=== PATIENT | female | born 1955 | race Caucasian/White ===

== ENCOUNTER 2023-01-08 19:49 | Emergency (ER) | payer MEDICARE, MEDICAID, SELFPAY ==
[2023-01-08 19:49] VITALS: BP 123/64; PULSE 89; RESP 18; TEMP 36.7; O2SAT 99
--- NOTE | 2023-01-08 20:12 | EX.ED.DYSGE1 ---
HPI History of Present Illness Chief Complaint: Shortness of Breath Detail of Chief Complaint: Short of breath, cough, sore throat, ear pain Informant: patient Onset/Context/Timing Onset: Yesterday Narrative Narrative: Patient presents complaining of cough with some production of blood-tinged sputum and sore throat. She complains of pain to her bilateral ears. She just traveled back from [place] via plane. Patient states she took a COVID test before she left [place] and it was negative. Patient does have a history of A-fib and is on Eliquis. [facility] Medical History (Updated 01/08/23 @ 21:[address] Myriam Mcmillan MD) Addisons disease Asthma Atrial fibrillation Home Medications guaifenesin 1,200 mg tablet, extended release 12 hr (Mucinex) 1,200 mg PO BID PRN cough #14 tabs 01/08/23 [Rx Last Taken Unknown] hydrocodone-homatropine 5 mg-1.5 mg/5 mL (5 mL) oral syrup (Hycodan) 5 ml PO Q6H PRN cough 3 days #60 mL 01/08/23 [Rx Last Taken Unknown] nirmatrelvir 300 mg (150 mg x2)-ritonavir 100 mg tablet,dose pack (Paxlovid) See Rx Instructions PO .COMPLEX #30 tabs 01/08/23 [Rx Last Taken Unknown] Allergy/AdvReac Type Severity Reaction Status Date / Time Penicillins Allergy Severe Anaphylaxis Verified 01/08/23 19:53 vancomycin Allergy Rash Verified 01/08/23 19:53 ASPRIN Allergy Severe Anaphylaxis Uncoded 01/08/23 19:53 Social History Smoking Status: Never smoker ROS ROS ED Constitutional Constitutional ED: Reports chills, fever(s) and subjective Eyes Eyes: Denies change in vision ENT ENT ED: Reports ear pain bilateral and sore throat; Denies rhinorrhea Cardiovascular Cardiovascular: Denies chest pain or palpitations Respiratory/Chest Respiratory/Chest: Reports cough and dyspnea Gastrointestinal Gastrointestinal: Denies abdominal pain, nausea or vomiting Musculoskeletal Musculoskeletal: Denies back pain or extremity pain Integumentary Denies Abrasions or rash Neurologic Neurologic: Denies headache(s) or weakness Psychiatric Psychiatric: Denies anxiety or depression Allergic/Immunologic Allergic/Immunologic ED: Denies lip swelling or urticaria EXAM Physical Exam Const Vital Signs: 01/08/23 19:49 01/08/23 20:41 Temperature 98.0 F Temperature Source Temporal Pulse Rate 89 Respiratory Rate 18 Respiratory Effort Normal Non-Labored Respiratory Depth Normal Respiratory Pattern Normal Blood Pressure 123/64 H Blood Pressure Mean 83 Pulse Ox 99 Oxygen Delivery Method Room Air Positive well nourished and well developed General Appearance ED: well developed HEENT Reports normocephalic and head/scalp atraumatic HEENT Narrative: TMs clear bilaterally. Posterior pharynx examination with mild drainage. Uvula midline. Eyes PERRL and EOMs intact bilaterally Neck supple Chest Wall inspection of chest normal and palpation of chest normal Resp normal respiratory effort and clear to auscultation bilaterally Cardio regular rate and regular rhythm GI normal to inspection, nondistended, normoactive bowel sounds Palpation: soft Extremity normal to inspection Neuro oriented x3 and no sensory deficits noted Sensorium / Orientation: alert Motor Exam: strength 5/5 throughout Psych mental status grossly normal Skin no rashes or lesions noted MDM MDM MDM Narrative Medical decision making narrative: Chest x-ray obtained to evaluate for acute lung pathology, cardiac size, or mediastinal abnormality. Swab for COVID and influenza obtained along with swab for strep pharyngitis. Patient given Robitussin-AC for cough control and sore throat Radiography Diagnostic Testing: Clinical Impression(s) from Imaging Studies Chest X-Ray 01/08/23 20:20 IMPRESSION: No acute cardiopulmonary disease. Electronically Signed: Jennifer Pastor MD at 20:34 EDT Reading Location ID and State: [address] [place] [address] , Service support , Treatment and Re-Evaluation :: Portable chest x-ray per my interpretation reveals no evidence of focal infiltrate. Radiology interpretation is reviewed and agrees. Swab for rapid strep is negative. Swab for influenza is negative. Swab for COVID does return positive. On repeat evaluation patient is continuing to have cough. She will be given Mucinex. She is being given an incentive spirometer. We discussed monitoring her oxygen levels at home. She will be given prescriptions for Paxlovid, Mucinex, and Hycodan. Return instructions given. Discharge Plan Triage Chief Complaint: Shortness of Breath ED Provider: Myriam Mcmillan Dx/Rx/DC Orders Clinical Impression: COVID-19 Instructions: Coronavirus Disease 2019 (COVID-19): Overview, Coronavirus Disease 2019 (COVID-19): Caring for Yourself or Others Prescriptions: New guaifenesin [Mucinex] 1,200 mg tablet extended release 12hr 1,200 mg PO BID PRN (Reason: cough) Qty: 14 0RF hydrocodone-homatropine [Hycodan] 5-1.5 mg/5 mL (5 mL) syrup 5 ml PO Q6H PRN (Reason: cough) 3 Days Qty: 60 0RF Paxlovid 300 mg (150 mg x 2)-100 mg tablets,dose pack See Rx Instructions .ROUTE .COMPLEX Qty: 30 0RF Rx Instructions: take TWO 150 mg tablets of nirmatrelvir with ONE 100 mg tablet of ritonavir twice daily for 5 days Primary Care Provider: [facility] Doctor,Out of Referrals: NOT,DEFINED [Non-Staff] - Disposition Disposition: Home, Self Care
--- NOTE | 2023-01-08 20:20 | RAD_ITS ---
STUDY: X-RAY CHEST REASON FOR EXAM: Female, 67 years old. cough TECHNIQUE: Single AP portable view of the chest. COMPARISON: None. FINDINGS: The lungs are clear and underexpanded. There is no demonstrated pleural abnormality. Normal size heart. Normal mediastinum and lizzie. Normal visualized pulmonary arteries. There is atherosclerotic calcification of the aortic arch with tortuosity. There are diffuse degenerative changes of the visualized thoracic spine. There is degenerative osteoarthritis of the bilateral shoulders. There is no demonstrated abnormality of the visualized soft tissue structures of the upper abdomen. RAD/Chest 1 View (Portable) IMPRESSION: No acute cardiopulmonary disease. Electronically Signed: Jennfier Pastor MD at 20:34 EDT ,
[2023-01-08] MEDS: guaiFENesin/Codeine 5 ML UDC PO (20:32)
[2023-01-08] MEDS: guaiFENesin 1,200 MG Tablet 1200 MG PO (22:00)
[2023-01-08 22:05] VITALS: BP 105/70; PULSE 73; RESP 18; O2SAT 97
== END 2023-01-08 22:06 | disposition home or self-care (01) ==
PROVIDERS: Emergency Provider Emergency Medicine; Visit Provider Emergency Medicine
DX: U07.1 COVID-19 (principal); I48.91 Unspecified atrial fibrillation; Z79.01 Long term (current) use of anticoagulants
CPT/HCPCS: 71045; 87428; 87880; 99283

== ENCOUNTER 2024-12-24 17:30 | Emergency (ER) | payer MEDICARE, MEDICAID, SELFPAY ==
[2024-12-24 17:31] VITALS: BP 122/79; PULSE 72; RESP 18; TEMP 37.2; O2SAT 98; BMI 38.7
[2024-12-24 18:34] LABS: Mucous, Urine 0 SEEN /hpf (<or=2+)
[2024-12-24 19:31] VITALS: BP 126/111; PULSE 72
[2024-12-24 19:47] LABS: Glucose, Dipstick Normal (Normal); Ketone-Dipstick Negative (Negative); Leukocyte Esterase-Dipstick 100 /ul (Negative); Nitrite-Dipstick Negative (Negative); Occult Blood-Urine 10 /ul (Negative); Protein-Dipstick 30 mg/dl (Negative); Specific Gravity, Urine 1.020 (1.002-1.030)
[2024-12-24 19:54] LABS: Urine Bilirubin Dipstick 1 mg/dL (Negative)
[2024-12-24 19:55] LABS: Color, Urine Yellow (Yellow)
[2024-12-24 21:00] VITALS: BP 123/71; PULSE 77; RESP 16; O2SAT 98
[2024-12-24 21:12] LABS: Red Blood Cells-Urine 0-5 SEEN /hpf (0-5); Squamous Epithelial Cells - UA 0-5 SEEN /hpf (5-10)
--- NOTE | 2024-12-24 21:49 | EDS_ITS ---
HPI HPI - Female History of Present Illness Chief Complaint: Complaint Informant: patient Narrative Narrative: 61-year-old female who lives in [place]. Has a history of Brian's disease, diabetes, CAD with stents on the blood thinners Eliquis and Plavix. States she had UTI earlier in the month. Was treated with Bactrim sometimes returned she is on a second course of Bactrim. The first course was for 5 days she been on this for 3 days. Said she is not improving. Her primary care physician want to have her evaluated locally since she normally lives in [place]. She denies any fevers. No abdominal pain. No vomiting or diarrhea. Prior similar symptoms: Yes Recent Illness/Hospitalization: No PFSH PFSH Medical History Addisons disease Asthma Atrial fibrillation Home Medications ?Medication ?Instructions ?Recorded ?Last Taken ?Type guaifenesin 1,200 mg tablet, 1,200 mg PO BID PRN cough #14 tabs 01/08/23 Unknown Rx extended release 12 hr (Mucinex) hydrocodone-homatropine 5 mg-1.5 5 ml PO Q6H PRN cough 3 days #60 mL 01/08/23 Unknown Rx mg/5 mL (5 mL) oral solution (Hycodan) nirmatrelvir 300 mg (150 mg See Rx Instructions PO .CO MPLEX 01/08/23 Unknown Rx x2)-ritonavir 100 mg tablet,dose #30 tabs pack (Paxlovid) cephalexin 500 mg capsule 500 mg PO Q6 7 days #28 CAPS ULES 12/24/24 Unknown Rx Allergy/AdvReac Type Severity Reaction Status Date / Time Penicillins Allergy Severe Anaphylaxis Verified 12/24/24 17:35 vancomycin Allergy Rash Verified 12/24/24 17:35 ciprofloxacin (From Cipro) AdvReac Severe Other Verified 12/24/24 17:35 ASPRIN Allergy Severe Anaphylaxis Uncoded 01/08/23 19:53 Family History no significant family his Social History Smoking Status: Never smoker ROS ROS ED ROS Narrative Dysuria. Constitutional Constitutional ED: Denies chills or fever(s) Eyes Eyes: Denies blurry vision ENT ENT ED: Denies ear pain Cardiovascular Cardiovascular: Denies chest pain Respiratory/Chest Respiratory/Chest: Denies cough, dyspnea or dyspnea on exertion Gastrointestinal Gastrointestinal: Denies abdominal pain, constipation, diarrhea, melena, nausea or vomiting Genitourinary Genitourinary ED: Reports dysuria; Denies hematuria Musculoskeletal Musculoskeletal: Denies arthralgias or myalgias Integumentary Denies abscess Neurologic Neurologic: Denies headache(s) Psychiatric Psychiatric: Denies anxiety or depression Endocrine Endocrinology: Denies heat intolerance or polydipsia Hematologic/Lymphatic Hematologic/Lymphatic: Denies easy bleeding or easy bruising Allergic/Immunologic Allergic/Immunologic ED: Denies mouth swelling, tongue swelling or urticaria EXAM Physical Exam Narrative Exam Narrative: 61-year-old female sitting upright in bed vital signs are stable afebrile. Current blood pressure 04/23/1978. She does not look septic toxic she is in no distress. H EENT exam pupils round react to light. Moist mutes membranes. Neck nontender no lymphadenopathy. Lungs clear to auscultation. Heart regular rhythm no murmur. Chest wall ribs nontender. Abdomen soft nontender. Moving all 4 extremities. Calves are nontender edema or cords. Neurologically patient is awake alert. Answering questions following commands. Normal drug safety data management specialist strength. Normal dorsi plantarflexion. Back nontender. No CVA tenderness. Benign exam. Clinically looks well. Const Vital Signs: 12/24/24 17:31 12/24/24 19:31 12/24/24 21:00 Temperature 98.9 F Temperature Source Temporal Pulse Rate 72 72 77 Respiratory Rate 18 16 Blood Pressure 122/79 H 126/111 H 123/71 H Blood Pressure Mean 93 116 88 Pulse Ox 98 98 Oxygen Delivery Method Room Air Room Air Positive well nourished and well developed; Negative for cachectic, contractures or unkempt General Appearance ED: well developed and NAD; Negative for unkempt, cachectic, contractures or pallor Nutritional Appearance: Negative for cachectic HEENT Reports moist mucous membranes Eyes PERRL and EOMs intact bilaterally Neck no lymphadenopathy, supple and no JVD Chest Wall inspection of chest normal and palpation of chest normal Resp normal respiratory effort and clear to auscultation bilaterally Cardio regular rate, regular rhythm, S1 normal heart sound, no murmurs and no JVD GI normal to inspection, nondistended, normoactive bowel sounds, soft to palpation, non-tender, non-distended and no masses Auscultation: normoactive bowel sounds Back/Spine no CVA tenderness General Back: Negative for CVA tenderness Cervical Spine: Negative for cervical spine tenderness Thoracic Spine / Upper Back: Negative for thoracic spinal tenderness Lumbar Spine / Lower Back: Negative for lumbar spinal tenderness Extremity normal to inspection and full ROM General Extremety ED: Negative for edema, tenderness or other findings General Extremity: Negative for edema or other findings Neuro oriented x3 and CN's II-XII intact bilaterally Sensorium / Orientation: alert, oriented to person, oriented to place and oriented to time Motor Exam: strength 5/5 throughout Psych mental status grossly normal Appearance: Negative for unkempt Attitude: No agitated Mood & Affect: Negative for depressed, anxious or tearful Skin no rashes or lesions noted and no wounds General Skin Exam: Negative for jaundice or pallor Rashes: No rashes noted Trauma: Negative for other MDM MDM MDM Narrative Medical decision making narrative: 69-year-old female history UTIs. Has been on Bactrim. UA was obtained shows 10-25 white cells and only rare bacteria. She wants her antibiotic changed. I was just going to send the culture. Patient will be given IM injection of Rocephin and be started on Keflex 504 times a day for a week. Urine culture be sent. Offered to do screening labs such as CBC and chemistry and she deferred. She did not want any further testing done at this time. History & Record Review Discussion w/independent historian: Patient Additional record(s) reviewed:: No prior records Lab Data Attestation: I reviewed the patient's lab results. Lab results narrative: UA shows 10-25 white cells. Rare bacteria. Urine culture be sent. Labs: Laboratory Results - last 24 hr 12/24/24 18:29 Urine Color Yellow Urine Clarity Clear Urine pH 6.0 Ur Specific [place] 1.020 Urine Protein 30 H Urine Glucose (UA) Normal Urine Ketones Negative Urine Occult Blood 10 H Urine Nitrite Negative Urine Bilirubin 1 H Urine Urobilinogen Normal Ur Leukocyte Esterase 100 H Urine RBC 0-5 SEEN Urine WBC 10-25 SEEN Ur Squamous Epith Cells 0-5 SEEN Urine Bacteria RARE Urine Mucus 0 SEEN Discharge Plan Triage Chief Complaint: Complaint ED Provider: Chase Hogan Dx/Rx/DC Orders Clinical Impression: Acute UTI, History of Brian's disease, History of diabetes mellitus Instructions: ED Cystitis Female Adult Prescriptions: New cephalexin 500 mg capsule 500 mg PO Q6 7 Days Qty: 28 0RF No Action guaifenesin [Mucinex] 1,200 mg tablet extended release 12hr 1,200 mg PO BID PRN (Reason: cough) Qty: 14 0RF hydrocodone-homatropine [Hycodan] 5-1.5 mg/5 mL (5 mL) syrup 5 ml PO Q6H PRN (Reason: cough) 3 Days Qty: 60 0RF Paxlovid 300 mg (150 mg x 2)-100 mg tablets,dose pack See Rx Instructions .ROUTE .COMPLEX Qty: 30 0RF Rx Instructions: take TWO 150 mg tablets of nirmatrelvir with ONE 100 mg tablet of ritonavir twice daily for 5 days Primary Care Provider: [facility] Amezquita,Out of Referrals: Kelvin Jones MD [Med Staff - External Relations Director, Family Practice] - 3-5 Days if not improving [facility] Doctor,Out of [Primary Care Provider, Medical] Activity Restrictions/Additional Instructions: Plenty of fluids and rest. Stop your current antibiotic the Bactrim. Start the Keflex 1 pill 4 times a day. We did send a urine culture if it is not sensitive to the Keflex we will get hold you. Return if feeling worse. Follow-up with your doctor when you are back in [place]. Print Language: Amharic Disposition Disposition: Home, Self Care
--- OUTSIDE RECORDS SUMMARY | 2024-12-24 21:49 | XMS RPT_ITS | CCD ---
Author Organization [facility] ion Partnership [facility] Care Team Providers Care Certified Forklift Operator Name Role Phone Danielle Cunningham Unavailable Unavailable Danielle Cunningham Unavailable Unavailable Unavailable Primary Care Provider Unavailabl e Unavailable Primary Care Provider Unavailabl e Allergies Allergy Classification Reported Allergen(s) Allergy Type Date of Onset Reaction(s) Facility (3 sources) Amoxicillin; Translations: [AMOXICILLIN] Drug Allergy 11-13-19 13 Rash, Hives, Shortness of Breath [facility] Work Phone: [phone] (3 sources) Aspirin; Translations: [ASPIRIN] Drug Allergy 11-13-19 13 Anaphylaxis [facility] Work Phone: (3 sources) Azithromycin; Translations: [AZITHROMYCIN] Drug Allergy 11-13-19 13 Rash [facility] Work Phone: (3 sources) carBAMazepine; Translations: [CARBAMAZEPINE] Drug Allergy 11-13-19 13 Hives [facility] Work Phone: [phone] (3 sources) Cefaclor; Translations: [CEFACLOR] Drug Allergy 11-13-19 13 Rash [facility] Work Phone: (3 sources) cefprozil; Translations: [CEFPROZIL] Drug Allergy 11-13-19 13 Rash [facility] Work Phone: (3 sources) cefTRIAXone; Translations: [CEFTRIAXONE SODIUM] Drug Allergy 11-13-19 13 Hives [facility] Work Phone: (3 sources) Cefuroxime; Translations: [CEFUROXIME AXETIL] Drug Allergy 11-13-19 13 Other: See Comments [facility] Work Phone: (3 sources) chlorproMAZINE; Translations: [CHLORPROMAZINE] Drug Allergy 11-13-19 13 Other: See Comments [facility] Work Phone: (3 sources) Cilastatin / Imipenem; Translations: [IMIPENEM-CILASTATI N] Drug Allergy 11-13-19 13 Unknown [facility] Work Phone: (3 sources) Cimetidine; Translations: [CIMETIDINE] Drug Allergy 11-13-19 13 Other: See Comments [facility] Work Phone: (3 sources) Ciprofloxacin; Translations: [CIPROFLOXACIN] Drug Allergy 11-13-19 13 Anaphylaxis [facility] Work Phone: (3 sources) Doxycycline; Translations: [DOXYCYCLINE] Drug Allergy 11-13-19 13 Unknown [facility] Work Phone: (3 sources) FLUoxetine; Translations: [FLUOXETINE] Drug Allergy 11-13-19 13 Other: See Comments [facility] Work Phone: (3 sources) Hyoscyamine; Translations: [HYOSCYAMINE] Drug Allergy 11-13-19 13 Other: See Comments [facility] Work Phone: (3 sources) levoFLOXacin; Translations: [LEVOFLOXACIN] Drug Allergy 11-13-19 13 [facility] Work Phone: (3 sources) Metoclopramide; Translations: [METOCLOPRAMIDE] Drug Allergy 11-13-19 13 Other: See Comments [facility] Work Phone: (3 sources) moxifloxacin; Translations: [MOXIFLOXACIN HCL] Drug Allergy 11-13-19 13 [facility] Work Phone: (3 sources) Nadolol; Translations: [NADOLOL] Drug Allergy 11-13-19 13 Other: See Comments [facility] Work Phone: (3 sources) Ofloxacin; Translations: [OFLOXACIN] Drug Allergy 11-13-19 13 Rash [facility] Work Phone: (3 sources) oxybutynin; Translations: [OXYBUTYNIN] Drug Allergy 11-13-19 13 Other: See Comments [facility] Work Phone: [phone] (3 sources) Penicillins; Translations: [PENICILLINS] Drug Intolerance 11-13-19 13 Anaphylaxis [facility] Work Phone: [phone] (3 sources) prednisoLONE; Translations: [PREDNISOLONE] Drug Allergy 11-13-19 13 Other: See Comments [facility] Work Phone: [phone] (3 sources) pregabalin; Translations: [PREGABALIN] Drug Allergy 11-13-19 13 Shortness of Breath [facility] Work Phone: [phone] (3 sources) Prochlorperazine; Translations: [PROCHLORPERAZINE EDISYLATE] Drug Allergy 11-13-19 13 Other: See Comments [facility] Work Phone: [phone] (3 sources) Propranolol; Translations: [PROPRANOLOL] Drug Allergy 11-13-19 13 Mental Status Change [facility] Work Phone: [phone] (3 sources) QUEtiapine; Translations: [QUETIAPINE FUMARATE] Drug Allergy 11-13-19 13 Other: See Comments [facility] Work Phone: [phone] (3 sources) rifAMPin; Translations: [RIFAMPIN] Drug Allergy 11-13-19 13 Intolerance [facility] Work Phone: [phone] (3 sources) Sertraline; Translations: [SERTRALINE] Drug Allergy 11-13-19 13 Other: See Comments [facility] Work Phone: [phone] (3 sources) Sulfamethoxazole / Trimethoprim; Translations: [SULFAMETHOXAZOLE-T RIMETHOPRIM] Drug Allergy 11-13-19 13 GI Upset, Shortness of Breath [facility] Work Phone: [phone] (3 sources) SUMAtriptan; Translations: [SUMATRIPTAN] Drug Allergy 11-13-19 13 Other: See Comments [facility] Work Phone: [phone] (3 sources) synthetic conjugated estrogens, A; Translations: [SYNTHETIC CONJ ESTROGENS A] Drug Allergy 11-13-19 13 Other: See Comments [facility] Work Phone: [phone] (3 sources) traZODone; Translations: [TRAZODONE] Drug Allergy 11-13-19 13 Other: See Comments [facility] Work Phone: (3 sources) Vancomycin; Translations: [VANCOMYCIN] Drug Allergy 11-13-19 13 Hives [facility] Work Phone: (1 source) NITROFURANTOIN MONOHYD/M-CRYST; Translations: [NITROFURANTOIN MONOHYD/M-CRYST] Propensity to adverse reactions to drug (disorder) 11-13-19 13 [facility] Repository Medications Current Medications Medication Drug Class(es) Dates Sig (Normalized) Sig (Original) Foam Bandage (MEPILEX) 4 X 4 bndg (2 sources) Start: 07-24-2022 End: 08-23-2022 Foam Bandage (MEPILEX) 4 X 4 bndg Indications: Pressure injury of buttock, stage 1, unspecified laterality Apply to affected area one time a week. 5 Each 0 07/24/2022 08/23/2022 Active Comment on above: Apply to affected ar ea one time a week. nitrofurantoin, macrocrystals 25 mg / nitrofurantoin, monohydrate 75 mg oral capsule (2 sources) Nitrofuran Antibacterial Start: 07-27-2022 End: 08-03-2022 take 1 capsule by mouth twice daily at mealtime nitrofurantoin monohydrate and macrocrystal (MACROBID) 100 mg capsule Take 1 capsule by mouth twice daily with meals for 7 days. 14 capsule 0 07/27/2022 08/03/2022 Active Comment on above: Take 1 capsule by [facility] twice daily with meals for 7 days. Completed/Discontinued Medications Medication Drug Class(es) Dates Sig (Normalized) Sig (Original) acetaminophen 300 mg / butalbital 50 mg / caffeine 40 mg oral capsule (2 sources) Barbiturate, Central Nervous System Stimulant, Methylxanthine Start: 07-07-2020 take 1 capsule by mouth once acetaminophen 300 mg-caffeine 40 mg-butalbital 50 mg (FIORICET) per capsule Take 1 capsule by mouth. 0 07/07/2020 Active Comment on above: Take 1 capsule by [facility]. acetaminophen 300 mg / codeine phosphate 30 mg oral tablet (2 sources) Opioid Agonist acetaminophen-co de ine (TYLENOL-COD #3) 300-30 mg per tablet acetaminophen 300 mg-codeine 30 mg tablet 0 Active Comment on above: acetaminophen 300 mg -codeine 30 mg tablet ALPRAZolam 1 mg oral tablet (2 sources) Benzodiazepine take 1 tablet by mouth every twenty-four hours as needed ALPRAZolam (XANAX) 1 mg tablet Take 1 mg by mouth at bedtime as needed. 0 Active Comment on above: Take 1 mg by mouth a t bedtime as needed. apixaban 5 mg oral tablet (2 sources) Factor Xa Inhibitor apixaban (EL IQUIS) 5 mg tab(s) Take by mouth. 0 Active Comment on above: Take by mouth. ARIPiprazole 5 mg oral tablet (2 sources) Atypical Antipsychotic Start: 06-30-2020 ARIPiprazole (ABILIFY) 5 mg tablet Take 1 tablet by mouth. 0 06/30/2020 Active Comment on above: Take 1 tablet by becca th. betamethasone 0.001 mg/mg topical ointment (2 sources) Corticosteroid Start: 07-20-2020 betamethasone valerate 0.1 % ointment Calcium Carbonate / vitamin D3 (2 sources) CALCIUM CARBONATE/VITAMIN D3 (CALCIUM 600 + D ORAL) Take by mouth. 0 Active Comment on above: Take by mouth. carbidopa 25 mg / levodopa 250 mg oral tablet (2 sources) Aromatic Amino Acid Decarboxylation Inhibitor, Aromatic Amino Acid take 1 tablet by mouth three times daily carbidopa-levodopa 25-250 mg per tablet Take 1 tablet by mouth three times daily. 0 Active Comment on above: Take 1 tablet by becca th three times daily. DULoxetine 30 mg delayed release oral capsule (4 sources) Serotonin and Norepinephrine Reuptake Inhibitor take 2 capsules by mouth twice daily DULoxetine (CYMBALTA) 30 mg capsule Take 60 mg by mouth twice daily. 0 Active take 1 capsule by mouth twice da chin DULoxetine (CYMBALTA) 60 mg capsule Take 60 mg by mouth twice daily. 0 Active Comment on above: Take 60 mg by mouth twice daily. EPINEPHrine (2 sources) alpha-Adrenergic Agonist, beta-Adrenergic Agonist, Catecholamine EPINEPHRINE (EPIPEN INTRAMUSC.) Inject intramuscularly. 0 Active Comment on above: Inject intramuscular ly. ergocalciferol 1.25 mg oral capsule (2 sources) Provitamin D2 Compound ergocalciferol 50,00 0 unit capsule (VITAMIN D2, DRISDOL) Vitamin D2 1,250 mcg (50,000 unit) capsule TK 1 C PO 2 TIMES A WK 0 Active Comment on above: Vitamin D2 1,250 mcg (50,000 unit) capsule TK 1 C PO 2 TIMES A WK 84 hr estradiol 0.24485 mg/hr transdermal system (2 sources) Estrogen apply 1 dose transdermal route every week estradiol 0.05 mg/24 hr Apply 1 Patch as directed once each week. 0 Active Comment on above: Apply 1 Patch as dir ected once each week. 72 hr fentaNYL 0.075 mg/hr transdermal system (2 sources) Opioid Agonist fentaNYL 75 mcg/ hr Apply 1 Patch as directed every 72 hours. 0 Active Comment on above: Apply 1 Patch as dir ected every 72 hours. ferrous sulfate 325 mg oral tablet (2 sources) ferrous sulfate 325 mg (65 mg iron) tablet Take by mouth. 0 Active Comment on above: Take by mouth. 24 hr fesoterodine fumarate 8 mg extended release oral tablet (2 sources) Fesoterodine 8 m g Tb24 Take by mouth. 0 Active Comment on above: Take by mouth. fludrocortisone acetate 0.1 mg oral tablet (2 sources) fludrocortisone (FLORINEF) 0.1 mg tablet Take by mouth. 0 Active Comment on above: Take by mouth. gabapentin enacarbil 600 mg extended release oral tablet (2 sources) Anti-epileptic Agent gabapentin enacarbil 600 mg Tb24 Take by mouth. 0 Active Comment on above: Take by mouth. hydrocortisone 10 mg oral tablet (2 sources) Corticosteroid take 1 tablet by mouth once daily hydrocortisone (CORTEF) 10 mg tablet Take 10 mg by mouth once daily. 0 Active Comment on above: Take 10 mg by mouth once daily. hydrOXYzine hydrochloride 25 mg oral tablet (2 sources) Antihistamine hydrOXYzine HCl 25 mg tablet Take 25 mg by mouth as needed. 0 Active Comment on above: Take 25 mg by mouth as needed. lansoprazole 30 mg delayed release oral capsule (2 sources) Proton Pump Inhibitor take 1 capsule by mouth once daily lansoprazole (PREVACID) 30 mg capsule Take 30 mg by mouth once daily. 0 Active Comment on above: Take 30 mg by mouth once daily. latanoprost 0.05 mg/ml ophthalmic solution (2 sources) Prostaglandin Analog Start: 2020 take 1 drop(s) into the eye(s) once daily at bedtime latanoprost (XALATAN) 0.005 % ophthalmic solution INSTILL 1 DROP IN BOTH EYES EVERY DAY AT BEDTIME 0 04/12/2020 Active Comment on above: INSTILL 1 DROP IN TIGRE TH EYES EVERY DAY AT BEDTIME lidocaine 0.05 mg/mg medicated patch (2 sources) Antiarrhythmic, Amide Local Anesthetic lidocaine (LIDODERM) 5 % Apply to affected area. 0 Active Comment on above: Apply to affected ar ea. Meclizine (2 sources) Antiemetic MECLIZINE HCL (MECLIZINE ORAL) Take by mouth. 0 Active Comment on above: Take by mouth. melatonin 5 mg oral capsule (2 sources) Melatonin 5 mg c ap Take by mouth. 0 Active Comment on above: Take by mouth. 24 hr metoprolol succinate 25 mg extended release oral tablet (2 sources) beta-Adrenergic Evangelina Start: 2020 metoprolol succinate ER (TOPROL XL) 25 mg 24 hr tablet nebivolol 5 mg oral tablet (2 sources) nebivolol (BYSTO LIC) 5 mg tablet Take by mouth. 0 Active Comment on above: Take by mouth. omega-3 acid ethyl esters (penitentiary) 1000 mg oral capsule (2 sources) omega-3 acid eth yl esters (LOVAZA) 1 gram capsule Take 2 g by mouth twice daily. 0 Active Comment on above: Take 2 g by mouth tw ice daily. polyethylene glycol 3350 38658 mg powder for oral solution (2 sources) Osmotic Laxative Start: 2019 polyethylene glycol 3350 (MIRALAX, GLYCOLAX) 17 gram/dose powder Take 17 g by mouth. 0 02/03/2020 Active Comment on above: Take 17 g by mouth. potassium chloride 20 meq extended release oral tablet (2 sources) Start: 2020 potassium chloride 20 mEq TbER Take 1 tablet by mouth. 0 05/06/2020 Active Comment on above: Take 1 tablet by becca th. Progesterone (2 sources) Progesterone PROGESTERONE,MELITON RONIZ ED (PROMETRIUM ORAL) Take by mouth. 0 Active Comment on above: Take by mouth. rizatriptan 10 mg disintegrating oral tablet (2 sources) Serotonin-1b and Serotonin-1d Receptor Agonist Start: 2012 rizatriptan (MAXALT BIOMASS PRODUCTION MANAGER) 10 mg disintegrating tablet Take by mouth. 0 08/06/2012 Active Comment on above: Take by mouth. traZODone hydrochloride 50 mg oral tablet (2 sources) Serotonin Reuptake Inhibitor Start: 2020 traZODone (DESYREL) 50 mg tablet zolpidem tartrate 10 mg oral tablet (2 sources) gamma-Aminobutyric Acid-ergic Agonist zolpidem (AMBIEN) 10 mg Take by mouth at bedtime as needed. 0 Active Comment on above: Take by mouth at bed time as needed. Results Test Name Value Interpretation Reference Range Facility [facility] CLAUDIA LEOS ([id number]) 1955 F Date Time Provider Department 07/28/22 ANGIE BIGGS [facility] During your visit today, we recorded the following information about you: Kavitha Emerson MA 07/28/2022 7:38 AM Signed ----- Message from Angie Biggs APRN.GLOBAL RISK MANAGEMENT DIRECTOR sent at 07/27/2022 9:19 AM EDT ----- Please call [facility] lab and ask for Fosfomycin to be added to susceptibility testing. Emily Morataya LPN 07/28/2022 9:07 AM Signed Phone call placed to [facility] client services requested testing added 07/28/2022 at 8:54 AM, spoke to Ryan. Emily Morataya LPN Allergies As of Date: 07/28/2022 Noted Allergy Reaction AMOXIL (AMOXICILLIN) 11/12/2012 2 - Rash 4 - Hives 12 - Shortness of Breath ASPIRIN 11/12/2012 10 - Anaphylaxis AVELOX (MOXIFLOXACIN HCL) 11/12/2012 4 - Hives CECLOR (CEFACLOR) 11/12/2012 2 - Rash CEFTIN (CEFUROXIME AXETIL) 11/12/2012 14 - Other: See Comments Comments: blisters on feet and hands CEFZIL (CEFPROZIL) 11/12/2012 2 - Rash CENESTIN (SYNTHETIC CONJ ESTROGEN*11/12/2012 14 - Other: See Comments Comments: migraines CIPROFLOXACIN 11/12/2012 10 - Anaphylaxis Comments: velazquez-ramiro reactions COMPAZINE (PROCHLORPERAZINE EDISY*11/12/2012 14 - Other: See Comments Comments: lock jaw CORGARD (NADOLOL) 11/12/2012 14 - Other: See Comments Comments: fatigue DESYREL (TRAZODONE) 11/12/2012 14 - Other: See Comments Comments: fatigue DOXYCYCLINE 11/12/2012 16 - Unknown FLOXIN (OFLOXACIN) 11/12/2012 2 - Rash IMITREX (SUMATRIPTAN) 11/12/2012 14 - Other: See Comments Comments: stiff neck and migraine INDERAL (PROPRANOLOL) 11/12/2012 1 - Mental Status Change Comments: confusion, memory loss LEVAQUIN (LEVOFLOXACIN) 11/12/2012 4 - Hives Comments: burning, totally red hands and feet LEVSIN (HYOSCYAMINE) 11/12/2012 14 - Other: See Comments Comments: stomach, cramps, dry mouth LYRICA (PREGABALIN) 11/12/2012 12 - Shortness of Breath OXYBUTYNIN 11/12/2012 14 - Other: See Comments Comments: ineffective PENICILLINS 11/12/2012 10 - Anaphylaxis Comments: shock, unconsciousness, shortness of breath PREDNISOLONE 11/12/2012 14 - Other: See Comments Comments: insomina PRIMAXIN (IMIPENEM-CILASTATIN) 11/12/2012 16 - Unknown PROZAC (FLUOXETINE) 11/12/2012 14 - Other: See Comments Comments: confusion and memory loss REGLAN (METOCLOPRAMIDE) 11/12/2012 14 - Other: See Comments Comments: severe agitation, confusion RIFAMPIN 11/12/2012 5 - Intolerance ROCEPHIN (CEFTRIAXONE SODIUM) 11/12/2012 4 - Hives Comments: dizziness and hallucinations SEPTRA (SULFAMETHOXAZOLE-TRIME THO*11/12/2012 8 - GI Upset 12 - Shortness of Breath SEROQUEL (QUETIAPINE FUMARATE) 11/12/2012 14 - Other: See Comments Comments: swollen tongue, electric shocks in legs TAGAMET (CIMETIDINE) 11/12/2012 14 - Other: See Comments Comments: nervousness TEGRETOL (CARBAMAZEPINE) 11/12/2012 4 - Hives THORAZINE (CHLORPROMAZINE) 11/12/2012 14 - Other: See Comments Comments: hallucinations VANCOMYCIN 11/12/2012 4 - Hives ZITHROMAX (AZITHROMYCIN) 11/12/2012 2 - Rash ZOLOFT (SERTRALINE) 11/12/2012 14 - Other: See Comments Comments: agitation and insomnia Date Reviewed: 07/24/2022 Reviewed by: Crys Guardado MA - Fully Assessed Reason for Visit: Results [95] Prescriptions as of 07/28/2022 - nitrofurantoin monohydrate and macrocrystal (MACROBID) 100 mg capsule Take 1 capsule by mouth twice daily with meals for 7 days. - Foam Bandage (MEPILEX) 4 X 4 bndg Apply to affected area one time a week. - acetaminophen-codeine (TYLENOL-COD #3) 300-30 mg per tablet acetaminophen 300 mg-codeine 30 mg tablet - apixaban (ELIQUIS) 5 mg tab(s) Take by mouth. - ARIPiprazole (ABILIFY) 5 mg tablet Take 1 tablet by mouth. - acetaminophen 300 mg-caffeine 40 mg-butalbital 50 mg (FIORICET) per capsule Take 1 capsule by mouth. - betamethasone valerate 0.1 % ointment - ergocalciferol 50,000 unit capsule (VITAMIN D2, DRISDOL) Vitamin D2 1,250 mcg (50,000 unit) capsule TK 1 C PO 2 TIMES A WK - ferrous sulfate 325 mg (65 mg iron) tablet Take by mouth. - fludrocortisone (FLORINEF) 0.1 mg tablet Take by mouth. - latanoprost (XALATAN) 0.005 % ophthalmic solution INSTILL 1 DROP IN BOTH EYES EVERY DAY AT BEDTIME - lidocaine (LIDODERM) 5 % Apply to affected area. - metoprolol succinate ER (TOPROL XL) 25 mg 24 hr tablet - nebivolol (BYSTOLIC) 5 mg tablet Take by mouth. - polyethylene glycol 3350 (MIRALAX, GLYCOLAX) 17 gram/dose powder Take 17 g by mouth. - potassium chloride 20 mEq TbER Take 1 tablet by mouth. - rizatriptan (MAXALT BIOMASS PRODUCTION MANAGER) 10 mg disintegrating tablet Take by mouth. - traZODone (DESYREL) 50 mg tablet - zolpidem (AMBIEN) 10 mg Take by mouth at bedtime as needed. - hydrOXYzine HCl 25 mg tablet Take 25 mg by mouth as needed. - CALCIUM CARBONATE/VITAMIN D3 (CALCIUM 600 + D O (more content not included)... [facility] CLAUDIA LEOS ([id number]) 1955 F Date Time Provider Department 07/27/22 NASRA MONK [facility] During your visit today, we recorded the following information about you: Nasra Monk APRN.CNP 07/27/2022 12:32 PM Signed This [employer] called patient at [phone] and identified with name and . Called patient and informed of positive UTI culture, did not take fosfomycin, not approved by insurance. States she can take macrobid, no allergy or intolerance RX, sent to pharmacy. All questions answered. Nasra Monk CNP Allergies As of Date: 07/27/2022 Noted Allergy Reaction AMOXIL (AMOXICILLIN) 11/12/2012 2 - Rash 4 - Hives 12 - Shortness of Breath ASPIRIN 11/12/2012 10 - Anaphylaxis AVELOX (MOXIFLOXACIN HCL) 11/12/2012 4 - Hives CECLOR (CEFACLOR) 11/12/2012 2 - Rash CEFTIN (CEFUROXIME AXETIL) 11/12/2012 14 - Other: See Comments Comments: blisters on feet and hands CEFZIL (CEFPROZIL) 11/12/2012 2 - Rash CENESTIN (SYNTHETIC CONJ ESTROGEN*11/12/2012 14 - Other: See Comments Comments: migraines CIPROFLOXACIN 11/12/2012 10 - Anaphylaxis Comments: murray reactions COMPAZINE (PROCHLORPERAZINE EDISY*11/12/2012 14 - Other: See Comments Comments: lock jaw CORGARD (NADOLOL) 11/12/2012 14 - Other: See Comments Comments: fatigue DESYREL (TRAZODONE) 11/12/2012 14 - Other: See Comments Comments: fatigue DOXYCYCLINE 11/12/2012 16 - Unknown FLOXIN (OFLOXACIN) 11/12/2012 2 - Rash IMITREX (SUMATRIPTAN) 11/12/2012 14 - Other: See Comments Comments: stiff neck and migraine INDERAL (PROPRANOLOL) 11/12/2012 1 - Mental Status Change Comments: confusion, memory loss LEVAQUIN (LEVOFLOXACIN) 11/12/2012 4 - Hives Comments: burning, totally red hands and feet LEVSIN (HYOSCYAMINE) 11/12/2012 14 - Other: See Comments Comments: stomach, cramps, dry mouth LYRICA (PREGABALIN) 11/12/2012 12 - Shortness of Breath OXYBUTYNIN 11/12/2012 14 - Other: See Comments Comments: ineffective PENICILLINS 11/12/2012 10 - Anaphylaxis Comments: shock, unconsciousness, shortness of breath PREDNISOLONE 11/12/2012 14 - Other: See Comments Comments: insomina PRIMAXIN (IMIPENEM-CILASTATIN) 11/12/2012 16 - Unknown PROZAC (FLUOXETINE) 11/12/2012 14 - Other: See Comments Comments: confusion and memory loss REGLAN (METOCLOPRAMIDE) 11/12/2012 14 - Other: See Comments Comments: severe agitation, confusion RIFAMPIN 11/12/2012 5 - Intolerance ROCEPHIN (CEFTRIAXONE SODIUM) 11/12/2012 4 - Hives Comments: dizziness and hallucinations SEPTRA (SULFAMETHOXAZOLE-TRIME THO*11/12/2012 8 - GI Upset 12 - Shortness of Breath SEROQUEL (QUETIAPINE FUMARATE) 11/12/2012 14 - Other: See Comments Comments: swollen tongue, electric shocks in legs TAGAMET (CIMETIDINE) 11/12/2012 14 - Other: See Comments Comments: nervousness TEGRETOL (CARBAMAZEPINE) 11/12/2012 4 - Hives THORAZINE (CHLORPROMAZINE) 11/12/2012 14 - Other: See Comments Comments: hallucinations VANCOMYCIN 11/12/2012 4 - Hives ZITHROMAX (AZITHROMYCIN) 11/12/2012 2 - Rash ZOLOFT (SERTRALINE) 11/12/2012 14 - Other: See Comments Comments: agitation and insomnia Date Reviewed: 07/24/2022 Reviewed by: Crys Guardado MA - Fully Assessed Reason for Visit: Results [95] Order(s):nitrofurantoin monohydrate and macrocrystal (MACROBID) 100 mg capsuleTake 1 capsule by mouth twice daily with meals for 7 days.Disp: 14 capsuleRfl: 0 Prescriptions as of 07/27/2022 - nitrofurantoin monohydrate and macrocrystal (MACROBID) 100 mg capsule Take 1 capsule by mouth twice daily with meals for 7 days. - Foam Bandage (MEPILEX) 4 X 4 bndg Apply to affected area one time a week. - acetaminophen-codeine (TYLENOL-COD #3) 300-30 mg per tablet acetaminophen 300 mg-codeine 30 mg tablet - apixaban (ELIQUIS) 5 mg tab(s) Take by mouth. - ARIPiprazole (ABILIFY) 5 mg tablet Take 1 tablet by mouth. - acetaminophen 300 mg-caffeine 40 mg-butalbital 50 mg (FIORICET) per capsule Take 1 capsule by mouth. - betamethasone valerate 0.1 % ointment - ergocalciferol 50,000 unit capsule (VITAMIN D2, DRISDOL) Vitamin D2 1,250 mcg (50,000 unit) capsule TK 1 C PO 2 TIMES A WK - ferrous sulfate 325 mg (65 mg iron) tablet Take by mouth. - fludrocortisone (FLORINEF) 0.1 mg tablet Take by mouth. - latanoprost (XALATAN) 0.005 % ophthalmic solution INSTILL 1 DROP IN BOTH EYES EVERY DAY AT BEDTIME - lidocaine (LIDODERM) 5 % Apply to affected area. - metoprolol succinate ER (TOPROL XL) 25 mg 24 hr tablet - nebivolol (BYSTOLIC) 5 mg tablet Take by mouth. - polyethylene glycol 3350 (MIRALAX, GLYCOLAX) 17 gram/dose powder Take 17 g by mouth. - potassium chloride 20 mEq TbER Take 1 tablet by mouth. - rizatriptan (MAXALT BIOMASS PRODUCTION MANAGER) 10 mg disintegrating tablet Take by mouth. - traZODone (DESYREL) 50 mg tablet - zolpidem (AMBIEN) 10 mg Take by mouth at bedtime as needed. - hyd (more content not included)... [facility] Bacteria Ur Culton 3 Bacteria identified Cx Nom (U) CULTURE, URINE: Mixed microbiota: ORGANISM ID: [id number] >=100,[id number] CFU/ml Escherichia coli Additional susceptibility testing performed by request. Extended-spectrum beta-lactamase (ESBL) production detected in this isolate. ESBL producing strains are considered resistant to all cephalosporins, penicillins, and aztreonam. ORGANISM ID: 2 1,000 - <5,000 CFU/ml Proteus mirabilis ORGANISM ID: 1 (ESCHERICHIA COLI) ANTIBIOTIC INTERPRETATION MELITON STATUS REFERENCE RANGE Ampicillin R >=32 F Susceptible <=8 , Intermediate >8 , Resistant >16 Cefazolin R >=64 F Susceptible 0-16 , Intermediate <0 or >16 , Resistant >16 Ceftriaxone R 32 F Susceptible <=1 , Intermediate >1 , Resistant >=4 Cefepime R F Ertapenem S <=0.5 F Susceptible <=0.5 , Intermediate >.5 , Resistant >1 Meropenem S <=0.25 F Susceptible <=1 , Intermediate >1 , Resistant >2 Gentamicin R >=16 F Susceptible <=4 , Intermediate >4 , Resistant >8 Tobramycin I 8 F Susceptible <=4 , Intermediate >4 , Resistant >8 Amikacin S <=2 F Susceptible <=16 , Intermediate >16 , Resistant >32 Trimeth sulfameth R >=320 F Susceptible <=40 , Resistant >40 Ciprofloxacin S <=0.25 F Susceptible <0.5 , Intermediate >=.5 , Resistant >=1 Nitrofurantoin S <=16 F Susceptible <=32 , Intermediate >32 , Resistant >64 ORGANISM ID: 2 (PROTEUS MIRABILIS) ANTIBIOTIC INTERPRETATION MELITON STATUS REFERENCE RANGE Ampicillin S <=2 F Susceptible <=8 , Intermediate >8 , Resistant >16 Cefazolin S <=4 F Susceptible 0-16 , Intermediate <0 or >16 , Resistant >16 Ceftriaxone S <=1 F Susceptible <=1 , Intermediate >1 , Resistant >=4 Cefepime S <=1 F Susceptible <=2 , Susceptible-Dose Dependent >2 , Resistant >=16 Ertapenem S <=0.5 F Susceptible <=0.5 , Intermediate >.5 , Resistant >1 Meropenem S <=0.25 F Susceptible <=1 , Intermediate >1 , Resistant >2 Ampicillin/Sulbact S <=2 F Susceptible <=8 , Intermediate >8 , Resistant >16 Piperacillin/Tazobac S <=4 F Susceptible <=16 , Intermediate >16 , Resistant >64 Gentamicin S <=1 F Susceptible <=4 , Intermediate >4 , Resistant >8 Tobramycin S <=1 F Susceptible <=4 , Intermediate >4 , Resistant >8 Trimeth sulfameth S <=20 F Susceptible <=40 , Resistant >40 Ciprofloxacin S <=0.25 F Susceptible <0.5 , Intermediate >=.5 , Resistant >=1 Nitrofurantoin R 128 F Susceptible <=32 , Intermediate >32 , Resistant >64 Abnormal [facility] Comment on above: Performed By: #### 6 30-4 #### [facility] CLIA [id number] [address] [place] [address] [place] #### MICMIS #### NON-INTERFACED REF LABS CLIA SEE SCANNED RESULTS CNOVon 07-24-2022 CNOV Office Visit (UCWSTR ) CLAUDIA LEOS ([id number]) 1955 F Date Time Provider Department 07/24/22 2:45 PM ANGIE BIGGS [facility] During your visit today, we recorded the following information about you: Temperature Pulse Respiration Blood pressure 98 degrees 93/minute 20/minute 126/78 Weight 108.9 kg Angie Biggs APRN.CNP 07/24/2022 3:18 PM Addendum ASSESSMENT/PLAN: 1. Abnormal urine odor - ICD9: 791.9, ICD10: R82.90 (primary diagnosis) - UA DIP, URINE (POC) - URINE CULTURE 2. Pressure injury of buttock, stage 1, unspecified laterality - ICD9: 707.05, 707.21, ICD10: L89.301 - mupirocin ointment- apply prior to bandage application. - MEPILEX 4 X 4 BANDAGE- leave on for 7 days or less. 3. Acute cystitis with hematuria - ICD9: 595.0, ICD10: N30.01 - FOSFOMYCIN 3 G ORAL PACK - Follow-up with your PCP in 3-5 days if symptoms have not improved or sooner if symptoms worsen - Discussed red flags and need for immediate medical evaluation if any occur. - Discussed supportive care treatment with fluids, rest and analgesia. - Discussed expected course of illness SOCORRO Casiano APRN.MELINDA 07/24/2022 3:25 PM Signed Subjective HPI Claudia Leos is a 66 year old female who presents with sores on her buttocks and possible UTI. States she has callouses on her buttocks and they opened up in the past couple days. She states the areas are very tender. She has noticed some spots on blood on her pads. She has used a barrier cream on the sores. She denies fever. She has limited mobility and sits a lot. She also has a strong odor to her urine, and has been having some bladder spasms for the past 3 weeks. She self-caths. Review of Systems Constitutional: Negative for chills and fever. Respiratory: Negative. Cardiovascular: Negative. Gastrointestinal: Positive for abdominal pain (suprapubic). Negative for diarrhea, nausea and vomiting. Genitourinary: See HPI Musculoskeletal: Negative for back pain. Skin: Negative for itching and rash. BP 126/78 Pulse 93 Temp 36.7 ?C (98 ?F) Resp 20 Wt 108.9 kg (240 lb) SpO2 97% No past medical history on file. No past surgical history on file. ALLERGIES Amoxil [Amoxicillin], Aspirin, Avelox [Moxifloxacin Hcl], Ceclor [Cefaclor], Ceftin [Cefuroxime Axetil], Cefzil [Cefprozil], Cenestin [Synthetic Conj Estrogens A], Ciprofloxacin, Compazine [Prochlorperazine Edisylate], Corgard [Nadolol], Desyrel [Trazodone], Doxycycline, Floxin [Ofloxacin], Imitrex [Sumatriptan], Inderal [Propranolol], Levaquin [Levofloxacin], Levsin [Hyoscyamine], Lyrica [Pregabalin], Macrobid [Nitrofurantoin Monohyd/M-Cryst], Oxybutynin, Penicillins, Prednisolone, Primaxin [Imipenem-Cilastatin], Prozac [Fluoxetine], Reglan [Metoclopramide], Rifampin, Rocephin [Ceftriaxone Sodium], Septra [Sulfamethoxazole-Trime thoprim], Seroquel [Quetiapine Fumarate], Tagamet [Cimetidine], Tegretol [Carbamazepine], Thorazine [Chlorpromazine], Vancomycin, Zithromax [Azithromycin], and Zoloft [Sertraline] MEDICATIONS apixaban (ELIQUIS) 5 mg tab(s) Take by mouth. acetaminophen 300 mg-caffeine 40 mg-butalbital 50 mg (FIORICET) per capsule Take 1 capsule by mouth. ferrous sulfate 325 mg (65 mg iron) tablet Take by mouth. fludrocortisone (FLORINEF) 0.1 mg tablet Take by mouth. latanoprost (XALATAN) 0.005 % ophthalmic solution INSTILL 1 DROP IN BOTH EYES EVERY DAY AT BEDTIME metoprolol succinate ER (TOPROL XL) 25 mg 24 hr tablet polyethylene glycol 3350 (MIRALAX, GLYCOLAX) 17 gram/dose powder Take 17 g by mouth. potassium chloride 20 mEq TbER Take 1 tablet by mouth. rizatriptan (MAXALT BIOMASS PRODUCTION MANAGER) 10 mg disintegrating tablet Take by mouth. traZODone (DESYREL) 50 mg tablet CALCIUM CARBONATE/VITAMIN D3 (CALCIUM 600 + D ORAL) Take by mouth. hydrocortisone (CORTEF) 10 mg tablet Take 10 mg by mouth once daily. DULoxetine (CYMBALTA) 60 mg capsule Take 60 mg by mouth twice daily. EPINEPHRINE (EPIPEN INTRAMUSC.) Inject intramuscularly. gabapentin enacarbil 600 mg Tb24 Take by mouth. omega-3 acid ethyl esters (LOVAZA) 1 gram capsule Take 2 g by mouth twice daily. lansoprazole (PREVACID) 30 mg capsule Take 30 mg by mouth once daily. Fesoterodine 8 mg Tb24 Take by mouth. Foam Bandage (MEPILEX) 4 X 4 bndg Apply to affected area one time a week. fosfomycin (MONUROL) 3 g pack Take 1 Packet by mouth one time only for 1 dose. acetaminophen-codeine (TYLENOL-COD #3) 300-30 mg per tablet acetaminophen 300 mg-codeine 30 mg tablet (Patient not taking: Reported on 07/24/2022) ARIPiprazole (ABILIFY) 5 mg tablet Take 1 tablet by mouth. (Patient not taking: Reported on 07/24/2022) betamethasone valerate 0.1 % ointment (Patient not taking: Reported on 07/24/2022) ergocalciferol 50,000 unit capsule (VITAMIN D2, DRISDOL) Vitamin D2 1,250 mcg (50,000 unit) capsule TK 1 (more content not included)... Normal [facility] CBC with Diffon 01-18-2018 Basophils Auto #/vol (Bld) 0.1 K/mcL Normal 0-0.2 [facility] Comment on above: Performed By: #### C MET, CBCDIF ####Unless otherwise noted, all testing performed by [place] [id number]: [id number] Director: Bryce Flores M.D. Basophils/100 WBC Auto (Bld) 0.9 % Normal [facility] Comment on above: Performed By: #### C MET, CBCDIF ####Unless otherwise noted, all testing performed by [place] [id number]: [id number] Director: Bryce Flores M.D. Eosinophils Auto #/vol (Bld) 0.1 K/mcL Normal 0-0.5 [facility] Comment on above: Performed By: #### C MET, CBCDIF ####Unless otherwise noted, all testing performed by [place] [id number]: [id number] Director: Bryce Flores M.D. Eosinophils/100 WBC Auto (Bld) 1.2 % Normal [facility] Comment on above: Performed By: #### C MET, CBCDIF ####Unless otherwise noted, all testing performed by [place] [id number]: [id number] Director: Bryce Flores M.D. Erythrocyte distribution width Auto Ratio (RBC) 13.5 % Normal 10.0-14.4 [facility] Comment on above: Performed By: #### C MET, CBCDIF ####Unless otherwise noted, all testing performed by [address] [phone]: [id number] Director: Bryce Flores M.D. Hematocrit Auto Volume Fraction (Bld) 39.4 % Normal 34.4-44.8 [facility] Comment on above: Performed By: #### C MET, CBCDIF ####Unless otherwise noted, all testing performed by [address] [phone]: [id number] Director: Bryce Flores M.D. Hemoglobin mass conc (Bld) 13.5 g/dL Normal 11.6-15.4 [facility] Comment on above: Performed By: #### C MET, CBCDIF ####Unless otherwise noted, all testing performed by [address] [phone]: [id number] Director: Bryce Flores M.D. Lymphocytes Auto #/vol (Bld) 1.0 K/mcL Normal 1.0-3.7 [facility] Comment on above: Performed By: #### C MET, CBCDIF ####Unless otherwise noted, all testing performed by [address] [phone]: [id number] Director: Bryce Flores M.D. Lymphocytes/100 WBC Auto (Bld) 14.3 % Normal [facility] Comment on above: Performed By: #### C MET, CBCDIF ####Unless otherwise noted, all testing performed by [address] [phone]: [id number] Director: Bryce Flores M.D. MCH Auto Entitic mass (RBC) 32.7 pg Normal 27.9-33.9 [facility] Comment on above: Performed By: #### C MET, CBCDIF ####Unless otherwise noted, all testing performed by [address] [phone]: [id number] Director: Bryce Flores M.D. MCHC Auto mass conc (RBC) 34.3 g/dL Normal 33.1-35.1 [facility] Comment on above: Performed By: #### C MET, CBCDIF ####Unless otherwise noted, all testing performed by [address] [phone]: [id number] Director: Bryce Flores M.D. MCV Auto Entitic volume (RBC) 95.2 fL Normal 82.6-98.9 [facility] Comment on above: Performed By: #### C MET, CBCDIF ####Unless otherwise noted, all testing performed by [address] [phone]: [id number] Director: Bryce Flores M.D. Monocytes Auto #/vol (Bld) 0.4 K/mcL Normal 0.1-0.6 [facility] Comment on above: Performed By: #### C MET, CBCDIF ####Unless otherwise noted, all testing performed by [address] [phone]: [id number] Director: Bryce Flores M.D. Monocytes/100 WBC Auto (Bld) 5.6 % Normal [facility] Comment on above: Performed By: #### C MET, CBCDIF ####Unless otherwise noted, all testing performed by [address] [phone]: [id number] Director: Bryce Flores M.D. Neutrophils Auto #/vol (Bld) 5.6 K/mcL Normal 1.2-6.9 [facility] Comment on above: Performed By: #### C MET, CBCDIF ####Unless otherwise noted, all testing performed by [address] [phone]: [id number] Director: Bryce Flores M.D. Platelet mean volume Auto Entitic volume (Bld) 6.8 fL Low 7.0-10.6 [facility] Comment on above: Performed By: #### C MET, CBCDIF ####Unless otherwise noted, all testing performed by [address] [phone]: [id number] Director: Bryce Flores M.D. Platelets Auto #/vol (Bld) 170 K/mcL Normal 162-402 [facility] Comment on above: Performed By: #### C MET, CBCDIF ####Unless otherwise noted, all testing performed by [address] [phone]: [id number] Director: Bryce Flores M.D. RBC Auto #/vol (Bld) 4.14 M/mcL Normal 3.7-5.0 [facility] Comment on above: Performed By: #### C MET, CBCDIF ####Unless otherwise noted, all testing performed by [address] [phone]: [id number] Director: Bryce Flores M.D. Segmented Neut % 78.0 % Normal [facility] Comment on above: Performed By: #### C MET, CBCDIF ####Unless otherwise noted, all testing performed by [address] [phone]: [id number] Director: Bryce Flores M.D. WBC Auto #/vol (Bld) 7.2 K/mcL Normal 3.4-10.6 [facility] Comment on above: Performed By: #### C MET, CBCDIF ####Unless otherwise noted, all testing performed by [address] [phone]: [id number] Director: Bryce Flores M.D. [facility] Metabolic [facility] 01-18-2018 Albumin mass conc 3.4 g/dL Normal 3.2-5.2 [facility] Comment on above: Performed By: #### C MET, CBCDIF ####Unless otherwise noted, all testing performed by [address] [phone]: [id number] Director: Bryce Flores M.D. ALP enzyme act/vol 79 U/L Normal 40-150 [facility] Comment on above: Performed By: #### C MET, CBCDIF ####Unless otherwise noted, all testing performed by [address] [phone]: [id number] Director: Bryce Flores M.D. ALT enzyme act/vol 24 U/L Normal 14-65 [facility] Comment on above: Result Comment: This test result might be falsely depressed or falsely elevated onsamples drawn from patients taking Sulfasalazine and Sulfapyridine.Venipuncture should occur prior to taking either of these drugs. Performed By: #### C MET, CBCDIF ####Unless otherwise noted, all testing performed by [address] [phone]: [id number] Director: Bryce Flores M.D. AST enzyme act/vol 14 U/L Normal 0-45 [facility] Comment on above: Result Comment: This test result might be falsely depressed or falsely elevated onsamples drawn from patients taking Sulfasalazine and Sulfapyridine.Venipuncture should occur prior to taking either of these drugs. Performed By: #### C MET, CBCDIF ####Unless otherwise noted, all testing performed by [address] [phone]: [id number] Director: Bryce Flores M.D. Bilirubin mass conc 0.4 mg/dL Normal 0.3-1.2 [facility] Comment on above: Performed By: #### C MET, CBCDIF ####Unless otherwise noted, all testing performed by [address] [phone]: [id number] Director: Bryce Flores M.D. Calcium mass conc 8.7 mg/dL Normal 8.4-10.2 [facility] Comment on above: Performed By: #### C MET, CBCDIF ####Unless otherwise noted, all testing performed by [address] [phone]: [id number] Director: Bryce Flores M.D. Chloride molar conc 106 mmol/L Normal 98-108 [facility] Comment on above: Performed By: #### C MET, CBCDIF ####Unless otherwise noted, all testing performed by [address] [phone]: [id number] Director: Bryce Flores M.D. CO2 molar conc 26 mmol/L Normal 21-32 [facility] Comment on above: Performed By: #### C MET, CBCDIF ####Unless otherwise noted, all testing performed by [address] [phone]: [id number] Director: Bryce Flores M.D. Creatinine mass conc 0.85 mg/dL Normal 0.60-1.20 [facility] Comment on above: Performed By: #### C MET, CBCDIF ####Unless otherwise noted, all testing performed by [phone]: [id number] Director: Bryce Flores M.D. GFR/1.73 sq M predicted among blacks MDRD vol rate/area (S/P/Bld) mL/min/{1.73_m2} Normal [facility] Comment on above: Result Comment: Afri can [place]ran GFR Calc Performed By: #### C MET, CBCDIF ####Unless otherwise noted, all testing performed by [address] [phone]: [id number] Director: Bryce Flores M.D. GFR/1.73 sq M predicted among non-blacks MDRD vol rate/area (S/P/Bld) mL/min/{1.73_m2} Normal [facility] Comment on above: Result Comment: Non- GFR CalceGFR is an estimated Glomerular Filtration Rate based on the valueof the patient's serum creatinine. In outpatients, eGFR should be usedas a helpful tool in screening for CKD. In inpatients or patients withacute renal failure, eGFR represents the GFR at the moment of the drawand should be used with caution. Performed By: #### C MET, CBCDIF ####Unless otherwise noted, all testing performed by [address] [phone]: [id number] Director: Bryce Flores M.D. Glucose mass conc 121 mg/dL High 70-99 [facility] Comment on above: Result Comment: This test result might be falsely depressed or falsely elevated onsamples drawn from patients taking Sulfasalazine and Sulfapyridine.Venipuncture should occur prior to taking either of these drugs. Performed By: #### C MET, CBCDIF ####Unless otherwise noted, all testing performed by [address] [phone]: [id number] Director: Bryce Flores M.D. Potassium molar conc 3.5 mmol/L Normal 3.5-5.1 [facility] Comment on above: Performed By: #### C MET, CBCDIF ####Unless otherwise noted, all testing performed by [address] [phone]: [id number] Director: Bryce Flores M.D. Protein mass conc 7.2 g/dL Normal 6.0-8.0 [facility] Comment on above: Performed By: #### C MET, CBCDIF ####Unless otherwise noted, all testing performed by [address] [phone]: [id number] Director: Bryce Flores M.D. Sodium molar conc 141 mmol/L Normal 135-145 [facility] Comment on above: Performed By: #### C MET, CBCDIF ####Unless otherwise noted, all testing performed by [address] [phone]: [id number] Director: Bryce Flores M.D. Urea nitrogen mass conc 15 mg/dL Normal 8-25 [facility] Comment on above: Performed By: #### C MET, CBCDIF ####Unless otherwise noted, all testing performed by [address] [phone]: [id number] Director: Bryce Flores M.D. Culture, Urineon 01-18-2018 Culture, Urine Test Name: Culture, UrineCulture Status: FinalMicro Source: UrineORGANISM ID: 1 - >100,000 CFU/ml PROTEUS MIRABILIS AVOID fluoroquinolone treatment whenever possible. Risk of serious side effects may outweigh benefit.ANTIBIOTIC INTERPRETATION MELITON STATUSAmpicillin S <= 2 CAmp/Sulbactam S <= 2 CCefazolin S <= 4 CCefepime S <= 1 CCeftazidime S <= 1 CCeftriaxone S <= 1 CCiprofloxacin S <= 0.25 CGentamicin S <= 1 CPiperacillin/Tazo S <= 4 CTobramycin S <= 1 CTrimeth/Sulfa S <= 20 C Normal [facility] Comment on above: Performed By: #### U RCUL ####Unless otherwise noted, all testing performed by [address] [phone]: [id number] Director: Bryce Flores M.D. Lactic Acidon 01-18-2018 Lactate molar conc 1.9 mmol/L Normal 0.6-2.0 [facility] Comment on above: Performed By: #### L A ####Unless otherwise noted, all testing performed by [address] [phone]: [id number] Director: Bryce Flores M.D. Urinalysis, Routineon 2017 Bacteria LM.HPF #/area (Urine sed) Many Abnormal NS;RARE [facility] Comment on above: Performed By: #### U A ####Unless otherwise noted, all testing performed by [address] [phone]: [id number] Director: Bryce Flores M.D. Bilirubin,Urine Negative Normal NEG;NEGATIVE [facility] Comment on above: Performed By: #### U A ####Unless otherwise noted, all testing performed by [address] [phone]: [id number] Director: Bryce Flores M.D. Blood,Urine Negative Normal NEG;NEGATIVE [facility] Comment on above: Performed By: #### U A ####Unless otherwise noted, all testing performed by [address] [phone]: [id number] Director: Bryce Flores M.D. Character Cloudy Normal [facility] Comment on above: Performed By: #### U A ####Unless otherwise noted, all testing performed by [phone]: [id number] Director: Bryce Flores M.D. Color Nom (U) Yellow Normal [facility] Comment on above: Performed By: #### U A ####Unless otherwise noted, all testing performed by [phone]: [id number] Director: Bryce Flores M.D. Glucose Ql (U) Negative Normal NEG;NEGATIVE [facility] Comment on above: Performed By: #### U A ####Unless otherwise noted, all testing performed by [place] [phone]: [id number] Director: Bryce Flores M.D. Ketone,Urine Negative Normal NEG;NEGATIVE [facility] Comment on above: Performed By: #### U A ####Unless otherwise noted, all testing performed by [phone]: [id number] Director: Bryce Flores M.D. Leuk.Esterase,Urin e Large Abnormal Negative [facility] Comment on above: Performed By: #### U A ####Unless otherwise noted, all testing performed by [address] [phone]: [id number] Director: Bryce Flores M.D. Nitrite,Urine Positive Abnormal NEG;NEGATIVE [facility] Comment on above: Performed By: #### U A ####Unless otherwise noted, all testing performed by [address] [phone]: [id number] Director: Bryce Flores M.D. pH Test strip (U) 6.0 [pH] Normal 4.5-8.0 [facility] Comment on above: Performed By: #### U A ####Unless otherwise noted, all testing performed by [address] [phone]: [id number] Director: Bryce Flores M.D. Protein,Urine Negative Normal NEG;NEGATIVE [facility] Comment on above: Performed By: #### U A ####Unless otherwise noted, all testing performed by [address] [phone]: [id number] Director: Bryce Flores M.D. Specific [place],Urine 1.020 Normal 1.003-1.029 [facility] Comment on above: Performed By: #### U A ####Unless otherwise noted, all testing performed by [address] [phone]: [id number] Director: Bryce Flores M.D. Squamous Epithelial 1 /HPF Normal 0-40 [facility] Comment on above: Performed By: #### U A ####Unless otherwise noted, all testing performed by [address] [phone]: [id number] Director: Bryce Flores M.D. Trans. Epithelial 3 /HPF Normal 0-3 [facility] Comment on above: Performed By: #### U A ####Unless otherwise noted, all testing performed by [address] [phone]: [id number] Director: Bryce Flores M.D. Urobilinogen,Urine < 2.0 Normal <2 [facility] Comment on above: Performed By: #### U A ####Unless otherwise noted, all testing performed by [address] [phone]: [id number] Director: Bryce Flores M.D. WBC Clumps Occasional Abnormal None Seen [facility] Comment on above: Performed By: #### U A ####Unless otherwise noted, all testing performed by [address] [phone]: [id number] Director: Bryce Flores M.D. WBC LM.HPF #/area (Urine sed) /[HPF] High 0-5 [facility] Comment on above: Performed By: #### U A ####Unless otherwise noted, all testing performed by [address] [phone]: [id number] Director: Bryce Flores M.D. Encounters Encounter Date Encounter Type Care Provider Facility Start: 07-28-2022 Telephone encounter Angie Joshua APRN.GLOBAL RISK MANAGEMENT DIRECTOR Work Phone: [facility] Comment on above: Results Start: 07-27-2022 Telephone encounter Nasra Monk APRN.GLOBAL RISK MANAGEMENT DIRECTOR Work Phone: [facility] Comment on above: Results Start: 07-24-2022 End: 07-24-2022 ambulatory Facility:[facility] Start: 07-13-2022 ambulatory Facility:[facility] Start: 06-03-2020 End: 06-03-2020 Orders Only Lilo Ryan Work Phone: [facility] Start: 01-18-2018 End: 01-18-2018 Emergency department patient visit Danielle Cunningham Facility:[place] Procedures Date Procedure Procedure Detail Performing Clinician Start: 01-18-2018 End: 01-18-2018 Microscopic examination of blood, culture Danielle Cunningham Comment on above: Performed By: #### B C ####Unless otherwise noted, all testing performed [address], [place] [phone]: [id number] Director: Bryce Flores M.D. Plan of Treatment Date Care Activity Detail Author Start: 06-10-2025 DIABETES SCREEN DIABETES SCREEN [facility] [facility] Start: 12-01-2022 Influenza vaccination INFLUENZA (Sea son Ended) [facility] Start: 04-02-2022 ADVANCE DIRECTIVE DISCUSSION ADVANCE DIRECTIVE DISCUSSION [facility] Start: 04-02-2022 DEPRESSION ASSESSMENT DEPRESSION ASS ESSMENT [facility] Start: 2021 BONE DENSITY BONE DENSITY [facility] Start: 2021 PNEUMOCOCCAL: 65+ (1 - PCV) PNEUMOCOCCAL: 65+ (1 - PCV) [facility] Start: 2006 SHINGRIX VACCINE (1 of 2) SHINGRIX V ACCINE (1 of 2) [facility] Start: 2001 COLOGUARD (FIT-DNA) COLOGUARD (FIT-D NA) [facility] Start: 2001 Colonoscopy COLONOSCOPY [facility] Start: 2001 COLORECTAL CANCER SCREENING COLORECTAL CANCER SCREENING [facility] Start: [address] COLONOGRAPHY [facility] Start: 2001 FECAL OCCULT BLOOD FECAL OCCULT BLOO D [facility] Start: 2001 LIPID SCREEN LIPID SCREEN [facility] Start: 2001 SIGMOIDOSCOPY SIGMOIDOSCOPY [facility] Start: 1996 Mammography MAMMOGRAM [facility] Start: 08-17-1975 Urine microalbumin profile DTAP,TDAP ,TD (1 - Tdap) [facility] Start: 1974 HEPATITIS C SCREENING HEPATITIS C SC ANA [facility] Start: 1974 HIV SCREENING HIV SCREENING [facility] Start: 02-16-1957 COVID-19 VACCINE (#1) COVID-19 VACCI NE (#1) [facility] Payers Date Payer Category Payer Medicare [facility] MEDICARE [facility] DUAL COMPLETE PPO SNP [id number] 2022-Present [phone] [address] [address] [place] [address] PPO [id number] 2022 Unknown [id number] 1993 Medicare [id number] Medicaid [id number] Social History Date Type Detail [facility] Start: 1955 Sex Assigned At Not on file [facility] Start: 07-24-2022 Tobacco smoking stat [facility] Never smoked tobacco [facility] Start: 07-24-2022 Tobacco use and exposure Smoke less tobacco non-user [facility] Start: 07-24-2022 Alcohol intake Not Asked [facility] Note 07-28-2022 Telephone Encounter - Emily Morataya LPN - 07/28/2022 8:55 AM EDTTelephone Encounter - Kavitha Emerson MA - 07/28/2022 7:38 AM EDT Note Date & Type Note Facility 07-28-2022 Miscellaneous Notes Formattin g of this note might be different from the original. Phone call placed to [facility] client services requested testing added 07/28/2022 at 8:54 AM, spoke to Ben. Emily Morataya LPN ----- Message from Angie Biggs APRN.GLOBAL RISK MANAGEMENT DIRECTOR sent at 07/27/2022 9:19 AM EDT ----- Please call [facility] lab and ask for Fosfomycin to be added to susceptibility testing. documented in this encounter [facility] Note 07-27-2022 Telephone Encounter - Nasra Monk APRN.CNP - 07/27/2022 12:30 PM EDT Note Date & Type Note Facility 07-27-2022 Miscellaneous Notes Formattin g of this note might be different from the original. This [employer]ER called patient at [phone] and identified with name and . Called patient and informed of positive UTI culture, did not take fosfomycin, not approved by insurance. States she can take macrobid, no allergy or intolerance RX, sent to pharmacy. All questions answered. Nasra Monk CNP documented in this encounter [facility] Clinical Note 07-24-2022 Note Date & Type Note Facility 07-24-2022 Note TEST 1: Fosfomycin TEST RESULTS 1: View results in Scanned Documents link when available. REFERRAL LAB 1: [facility] Comment on above: Performed By: #### 6 30-4 #### [facility] CLIA [id number] [address] [place] [address] [place] #### [facility] #### NON-INTERFACED REF LABS CLIA SEE SCANNED RESULTS Progress note 07-24-2022 Note Date & Type Note Facility 07-24-2022 Note HNO ID: [id number] Author: Angie Biggs APRN.CNP Service: ? Author Type: Nurse Practitioner Type: Progress Notes Filed: 07/24/2022 3:25 PM Note Text: Subjective HPI Claudia Leos is a 66 year old female who presents with sores on her buttocks and possible UTI. States she has callouses on her buttocks and they opened up in the past couple days. She states the areas are very tender. She has noticed some spots on blood on her pads. She has used a barrier cream on the sores. She denies fever. She has limited mobility and sits a lot. She also has a strong odor to her urine, and has been having some bladder spasms for the past 3 weeks. She self-caths. Review of Systems Constitutional: Negative for chills and fever. Respiratory: Negative. Cardiovascular: Negative. Gastrointestinal: Positive for abdominal pain (suprapubic). Negative for diarrhea, nausea and vomiting. Genitourinary: See HPI Musculoskeletal: Negative for back pain. Skin: Negative for itching and rash. BP 126/78 Pulse 93 Temp 36.7 ?C (98 ?F) Resp 20 Wt 108.9 kg (240 lb) SpO2 97% No past medical history on file. No past surgical history on file. ALLERGIES Amoxil [Amoxicillin], Aspirin, Avelox [Moxifloxacin Hcl], Ceclor [Cefaclor], Ceftin [Cefuroxime Axetil], Cefzil [Cefprozil], Cenestin [Synthetic Conj Estrogens A], Ciprofloxacin, Compazine [Prochlorperazine Edisylate], Corgard [Nadolol], Desyrel [Trazodone], Doxycycline, Floxin [Ofloxacin], Imitrex [Sumatriptan], Inderal [Propranolol], Levaquin [Levofloxacin], Levsin [Hyoscyamine], Lyrica [Pregabalin], Macrobid [Nitrofurantoin Monohyd/M-Cryst], Oxybutynin, Penicillins, Prednisolone, Primaxin [Imipenem-Cilastatin], Prozac [Fluoxetine], Reglan [Metoclopramide], Rifampin, Rocephin [Ceftriaxone Sodium], Septra [Sulfamethoxazole-Trimethoprim], Seroquel [Quetiapine Fumarate], Tagamet [Cimetidine], Tegretol [Carbamazepine], Thorazine [Chlorpromazine], Vancomycin, Zithromax [Azithromycin], and Zoloft [Sertraline] MEDICATIONS apixaban (ELIQUIS) 5 mg tab(s) Take by mouth. acetaminophen 300 mg-caffeine 40 mg-butalbital 50 mg (FIORICET) per capsule Take 1 capsule by mouth. ferrous sulfate 325 mg (65 mg iron) tablet Take by mouth. fludrocortisone (FLORINEF) 0.1 mg tablet Take by mouth. latanoprost (XALATAN) 0.005 % ophthalmic solution INSTILL 1 DROP IN BOTH EYES EVERY DAY AT BEDTIME metoprolol succinate ER (TOPROL XL) 25 mg 24 hr tablet polyethylene glycol 3350 (MIRALAX, GLYCOLAX) 17 gram/dose powder Take 17 g by mouth. potassium chloride 20 mEq TbER Take 1 tablet by mouth. rizatriptan (MAXALT BIOMASS PRODUCTION MANAGER) 10 mg disintegrating tablet Take by mouth. traZODone (DESYREL) 50 mg tablet CALCIUM CARBONATE/VITAMIN D3 (CALCIUM 600 + D ORAL) Take by mouth. hydrocortisone (CORTEF) 10 mg tablet Take 10 mg by mouth once daily. DULoxetine (CYMBALTA) 60 mg capsule Take 60 mg by mouth twice daily. EPINEPHRINE (EPIPEN INTRAMUSC.) Inject intramuscularly. gabapentin enacarbil 600 mg Tb24 Take by mouth. omega-3 acid ethyl esters (LOVAZA) 1 gram capsule Take 2 g by mouth twice daily. lansoprazole (PREVACID) 30 mg capsule Take 30 mg by mouth once daily. Fesoterodine 8 mg Tb24 Take by mouth. Foam Bandage (MEPILEX) 4 X 4 bndg Apply to affected area one time a week. fosfomycin (MONUROL) 3 g pack Take 1 Packet by mouth one time only for 1 dose. acetaminophen-codeine (TYLENOL-COD #3) 300-30 mg per tablet acetaminophen 300 mg-codeine 30 mg tablet (Patient not taking: Reported on 07/24/2022) ARIPiprazole (ABILIFY) 5 mg tablet Take 1 tablet by mouth. (Patient not taking: Reported on 07/24/2022) betamethasone valerate 0.1 % ointment (Patient not taking: Reported on 07/24/2022) ergocalciferol 50,000 unit capsule (VITAMIN D2, DRISDOL) Vitamin D2 1,250 mcg (50,000 unit) capsule TK 1 C PO 2 TIMES A WK (Patient not taking: Reported on 07/24/2022) lidocaine (LIDODERM) 5 % Apply to affected area. (Patient not taking: Reported on 07/24/2022) nebivolol (BYSTOLIC) 5 mg tablet Take by mouth. (Patient not taking: Reported on 07/24/2022) zolpidem (AMBIEN) 10 mg Take by mouth at bedtime as needed. (Patient not taking: No sig reported) hydrOXYzine HCl 25 mg tablet Take 25 mg by mouth as needed. (Patient not taking: Reported on 07/24/2022) carbidopa-levodopa 25-250 mg per tablet Take 1 tablet by mouth three times daily. (Patient not taking: No sig reported) DULoxetine (CYMBALTA) 30 mg capsule Take 60 mg by mouth twice daily. (Patient not taking: Reported on 07/24/2022) fentaNYL 75 mcg/hr Apply 1 Patch as directed every 72 hours. (Patient not taking: No sig reported) MECLIZINE HCL (MECLIZINE ORAL) Take by mouth. (Patient not taking: Reported on 07/24/2022) Melatonin 5 mg cap Take by mouth. (Patient not taking: Reported on 07/24/2022) PROGESTERONE,MICRONIZED (PROMETRIUM ORAL) Take by mouth. (Patient not taking: No sig reported) estradiol 0.05 mg/24 hr Apply 1 Patch (more content not included)... [facility] Summary Purpose Family History No Family History Records FoundNo Family History Records Found Advance Directives No Advanced Directives Records FoundNo Advanced Directives Records Found Additional Source Comments INFORMATION SOURCE (unrecogn ized section and content) DATE CREATED AUTHOR 02/19/2018 [facility] DATE CREATED AUTHOR AUTHOR'S RAVI ATALYSE 08/12/2022 [facility] Source Comments (unrecognize d section and content) In the event this informatio n is protected by the Federal Confidentiality of Alcohol and Drug Abuse Patient Records regulations: The Federal rules restrict any use of the information to criminally investigate or prosecute any alcohol or drug abuse patient.[facility] the event this information is protected by the Federal Confidentiality of Alcohol and Drug Abuse Patient Records regulations: The Federal rules restrict any use of the information to criminally investigate or prosecute any alcohol or drug abuse patient.[facility] Reason for Visit (unrecogniz ed section and content) Reason Comments Results FOR RECORDS PERTAINING TO PATIENTS WHO ARE OR HAVE BEEN ENROLLED IN A CHEMICAL DEPENDENCY/SUBSTANCEABUSE PROGRAM, SOME INFORMATION MAY BE OMITTED. This clinical summary was aggregated from multiple sources. Caution should be exercised in using it in the provision of clinical care. This summary normalizes information from multiple sources, and as a consequence, information in this document may materially change the coding, format and clinical context of patient data. In addition, data may be omitted in some cases. CLINICAL DECISIONS SHOULD BE BASED ON THE PRIMARY CLINICAL RECORDS. [employer] [facility]. provides no warranty or guarantee of the accuracy or completeness of information in this document.
[2024-12-24 21:51] VITALS: BP 105/88; PULSE 78; RESP 16; TEMP 37.2; O2SAT 98
[2024-12-24 22:50] VITALS: BP 127/90
== END 2024-12-24 23:16 | disposition home or self-care (01) ==
LOC: ED 21:46
PROVIDERS: Emergency Provider Emergency Medicine; Visit Provider Emergency Medicine
DX: N39.0 Urinary tract infection, site not specified (principal); E27.1 Primary adrenocortical insufficiency; E11.9 Type 2 diabetes mellitus without complications; I25.10 Atherosclerotic heart disease of native coronary artery without angina pectoris; Z95.5 Presence of coronary angioplasty implant and graft; Z79.02 Long term (current) use of antithrombotics/antiplatelets; Z79.01 Long term (current) use of anticoagulants; Z87.440 Personal history of urinary (tract) infections
CPT/HCPCS: 81001; 87077; 87086; 87088; 87186; 96372; 99282